=== PATIENT | male | born 1945 | race Caucasian/White ===

== ENCOUNTER → 2016-09-05 | Outpatient (CLI) | payer MEDICARE ==
[~2016-09-05] MED LIST: ACYC-101 PO; ALFU10TA2 PO; ALTA2.5C4 PO; AMBI5TAB PO; AMIO200T PO; ATOR40TA16 PO; ISOS30TA3 PO; META48.53 PO; METO25TA3 PO; PLAV75TA29 PO; VIAG100T PO
== END ==
LOC: CLAB 11:27
PROVIDERS: ATTEND Family Medicine
DX: N40.0 Benign prostatic hyperplasia without lower urinary tract symptoms (principal)
CPT/HCPCS: 36415; 84153

== ENCOUNTER → 2016-10-09 | Outpatient (CLI) | payer MEDICARE ==
[2016-10-09 15:22] LABS: HEMATOCRIT 45.1 % (39.0-51.0); MEAN CELL VOLUME 100.9 FL (80.0-100.0); MEAN CORPUSCULAR HEMOGLOBIN 34.3 PG (27.0-34.0); PLATELET COUNT 166 TH/MM3 (150-450); RED BLOOD COUNT 4.47 MIL/MM3 (4.50-5.90); RED CELL DISTRIBUTION WIDTH 14.3 % (11.6-17.2); REVIEW FLAG FINAL; WHITE BLOOD COUNT 7.5 TH/MM3 (4.0-11.0)
[2016-10-09 15:40] LABS: BICARBONATE 26.7 MEQ/L (21.0-32.0); POTASSIUM 4.1 MEQ/L (3.5-5.1)
[2016-10-09 16:07] LABS: FREE T4 1.19 NG/DL (0.76-1.46); INDIRECT BILIRUBIN 0.5 MG/DL (0.0-0.8); TOTAL BILIRUBIN ADULT 0.7 MG/DL (0.2-1.0)
[2016-10-10 14:25] LABS: CRYPTOCOCCUS ANTIGEN Negative (Negative)
== END ==
LOC: CLAB 15:04
PROVIDERS: ATTEND Specialist
DX: G93.3 Postviral and related fatigue syndromes (principal); R53.1 Weakness; R53.81 Other malaise; R53.83 Other fatigue; E88.9 Metabolic disorder, unspecified; E78.4 Other hyperlipidemia; E78.5 Hyperlipidemia, unspecified; E53.1 Pyridoxine deficiency; G61.9 Inflammatory polyneuropathy, unspecified; Z79.891 Long term (current) use of opiate analgesic
CPT/HCPCS: 36415; 80048; 80076; 82607; 84439; 84443; 85027; 87899

== ENCOUNTER → 2016-10-28 | Outpatient (CLI) | payer MEDICARE ==
[2016-10-28 07:37] LABS: POTASSIUM 4.2 MEQ/L (3.5-5.1)
== END ==
LOC: CLAB 06:34
PROVIDERS: ATTEND Internal Medicine Interventional Cardiology
DX: I42.9 Cardiomyopathy, unspecified (principal); I48.91 Unspecified atrial fibrillation; I36.9 Nonrheumatic tricuspid valve disorder, unspecified; I38 Endocarditis, valve unspecified; Z68.26 Body mass index [BMI] 26.0-26.9, adult; I25.10 Atherosclerotic heart disease of native coronary artery without angina pectoris; I05.9 Rheumatic mitral valve disease, unspecified; E78.2 Mixed hyperlipidemia; Z95.5 Presence of coronary angioplasty implant and graft; Z95.1 Presence of aortocoronary bypass graft
CPT/HCPCS: 36415; 82565; 84132; 84295; 84520

== ENCOUNTER → 2017-02-26 | Outpatient (CLI) | payer MEDICARE ==
[~2017-02-26] MED LIST changes: -METO25TA3 PO; +METO50TA PO
[2017-02-26 07:56] LABS: FREE T4 1.29 NG/DL (0.76-1.46); HDL CHOLESTEROL 46.7 MG/DL (40.0-60.0); INDIRECT BILIRUBIN 0.9 MG/DL (0.0-0.8); TOTAL BILIRUBIN ADULT 1.2 MG/DL (0.2-1.0)
== END ==
LOC: CLAB 06:56
PROVIDERS: ATTEND Internal Medicine Interventional Cardiology
DX: E78.2 Mixed hyperlipidemia (principal); Z79.899 Other long term (current) drug therapy
CPT/HCPCS: 36415; 80061; 80076; 84439; 84443

== ENCOUNTER → 2017-06-01 | Outpatient (CLI) | payer MEDICARE ==
[~2017-06-01] MED LIST changes: -ACYC-101 PO; -ALTA2.5C4 PO; -AMBI5TAB PO; +APIX5TAB PO; +ASPI81TA23 PO; +DONE5TAB7 PO; +FLUO0.0122 EACH EAR; -ISOS30TA3 PO; +METO25TA3 PO; -METO50TA PO; +MIRA50TA PO; +NITR1SUB3 SL; -PLAV75TA29 PO; +VITA100021 SL
[2017-06-01 12:17] LABS: HEMATOCRIT 46.5 % (39.0-51.0); MEAN CELL VOLUME 103.8 FL (80.0-100.0); MEAN CORPUSCULAR HEMOGLOBIN 35.7 PG (27.0-34.0); MEAN CORPUSCULAR HGB CONC 34.4 % (32.0-36.0); PLATELET COUNT 264 TH/MM3 (150-450); RED BLOOD COUNT 4.48 MIL/MM3 (4.50-5.90); RED CELL DISTRIBUTION WIDTH 14.6 % (11.6-17.2); REVIEW FLAG FINAL; WHITE BLOOD COUNT 8.9 TH/MM3 (4.0-11.0)
[2017-06-01 12:35] LABS: ANION GAP 6 MEQ/L (5-15); AST (GOT) 30 U/L (15-37); BICARBONATE 28.3 MEQ/L (21.0-32.0); BLOOD UREA NITROGEN 32 MG/DL (7-18); CHLORIDE 104 MEQ/L (98-107); GLOMERULAR FILTRATION RATE 37 ML/MIN (>89); GLUCOSE,FASTING 71 MG/DL (74-99); POTASSIUM 4.9 MEQ/L (3.5-5.1); SODIUM (NA) 138 MEQ/L (136-145)
[2017-06-01 12:36] LABS: ALT (GPT) 41 U/L (12-78)
[2017-06-01 12:38] LABS: ALKALINE PHOSPHATASE 88 U/L (45-117); CREATINE KINASE 113 U/L (39-308); TOTAL BILIRUBIN ADULT 0.5 MG/DL (0.2-1.0)
[2017-06-01 12:50] LABS: WESTERGREN SEDIMENTATION RATE 18 mm/hr (0-20)
== END ==
LOC: CLAB 11:57
PROVIDERS: ATTEND Family Medicine
DX: I25.10 Atherosclerotic heart disease of native coronary artery without angina pectoris (principal); M25.50 Pain in unspecified joint; M62.81 Muscle weakness (generalized); Z86.19 Personal history of other infectious and parasitic diseases
CPT/HCPCS: 36415; 80053; 82550; 85027; 85652; 86140; G0463; 99213